=== PATIENT | male | born 1995 | race Caucasian/White ===

== ENCOUNTER 2018-03-04 09:06 | Emergency (ER) | payer MEDICAID ==
[2018-03-04] MEDS ORDERED: LET GEL TOPICAL 1 EA SYR TP ONE ×2 (10:28→10:32)
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
[2018-03-04] MEDS ORDERED: TDAP ADULT 0.5 ML INJ (BOOSTRIX) IM ONE (10:32)
[2018-03-04] MEDS ORDERED: CEPHALEXIN 500 MG CAP PO ONE (10:34)
[2018-03-04 12:48] VITALS: BP 124/73
== END 2018-03-04 12:45 | disposition home or self-care (01) ==
DX: S01.81XA Laceration without foreign body of other part of head, initial encounter (principal); S01.21XA Laceration without foreign body of nose, initial encounter; F17.200 Nicotine dependence, unspecified, uncomplicated; S40.211A Abrasion of right shoulder, initial encounter; Z23 Encounter for immunization; V18.4XXA Pedal cycle driver injured in noncollision transport accident in traffic accident, initial encounter; Y92.410 Unspecified street and highway as the place of occurrence of the external cause; Y99.8 Other external cause status; Y93.55 Activity, bike riding